=== PATIENT | male | born 1995 | race Caucasian/White ===

== ENCOUNTER 2016-07-23 00:24 | Emergency (ER) | payer BC, OTHER ==
[~2016-07-23] VITALS: Ht 160 cm; Wt 72.7 kg
[~2016-07-23 00:24] MED LIST: PREDNISONE20 MG PO
[2016-07-23 00:37] VITALS: BP 122/70; TEMP 97.3
[2016-07-23] MEDS ORDERED: ILOTYCIN5 MG/GM OU (01:29)
[2016-07-23 02:05] VITALS: PULSE 68
== END 2016-07-23 02:02 | disposition home or self-care (01) ==
LOC: COL.ER 00:24
DX: H10.89 Other conjunctivitis (principal); B99.9 Unspecified infectious disease

== ENCOUNTER 2016-12-27 18:15 | Emergency (ER) | payer BC ==
[~2016-12-27] VITALS: Ht 162.6 cm; Wt 72.7 kg
[~2016-12-27 18:15] MED LIST changes: +ILOTYCIN5 MG/GM OU
[2016-12-27 18:18] VITALS: TEMP 98.6
[2016-12-27 19:19] LABS: CALCIUM 9.5 mg/dL (8.4-10.2); CREATININE, serum 0.79 mg/dL (0.66-1.25); POTASSIUM 3.6 mmol/L (3.4-5.0)
[2016-12-27] MEDS ORDERED: ZOFRAN ODT4 MG PO (19:39)
[2016-12-27 20:16] VITALS: BP 117/66; PULSE 67
== END 2016-12-27 20:16 | disposition home or self-care (01) ==
LOC: COL.ER 18:15
PROVIDERS: Emergency Medicine
DX: R53.81 Other malaise (principal); R11.0 Nausea; R07.89 Other chest pain
CPT/HCPCS: J2405; J7030

== ENCOUNTER 2018-02-04 14:42 | Emergency (ER) | payer BC ==
[~2018-02-04] VITALS: Ht 162.6 cm; Wt 75.0 kg
[~2018-02-04 14:42] MED LIST changes: +ZOFRAN ODT4 MG PO
[2018-02-04 14:44] VITALS: TEMP 98.4
[2018-02-04 15:47] LABS: BASO % 0.4 % (0.0-2.0); EOS # 0.1 (0.0-0.7); EOS % 1.8 % (0-4.0); GRAN # 3.1 (1.4-6.5); GRAN % 60.1 % (42.2-75.2); HEMATOCRIT 45.5 % (42.0-52.0); HEMOGLOBIN 15.6 g/dl (13.5-18.0); LYMPH # 1.5 (1.2-3.4); LYMPH % 28.7 % (20.0-51.0); MEAN CELL VOLUME 89 fl (80.0-100.0); MEAN CORPUSCULAR HEMOGLOBIN 31 pg (27.0-31.0); MEAN CORPUSCULAR HGB CONC 34 g/dl (33.0-37.0); MEAN PLATELET VOLUME 9.7 fl (7.4-10.4); MONO # 0.5 (0.1-0.6); PLATELET COUNT 220 K/mm3 (130-400); REDCELL DISTRIBUTION WIDTH-CV 11.7 % (11.5-14.5)
[2018-02-04 15:56] LABS: ALBUMIN 4.4 gm/dL (3.5-5.0); BILIRUBIN,TOTAL 0.5 mg/dL (0.0-1.0); CALCIUM 9.2 mg/dL (8.4-10.2); CREATININE, serum 0.71 mg/dL (0.66-1.25); POTASSIUM 3.7 mmol/L (3.4-5.0); TOTAL PROTEIN 7.7 gm/dL (6.4-8.2)
[2018-02-04 17:29] VITALS: BP 117/68; PULSE 80
== END 2018-02-04 17:30 | disposition home or self-care (01) ==
LOC: COL.ER 14:42
PROVIDERS: Emergency Medicine
DX: J02.9 Acute pharyngitis, unspecified (principal); R00.2 Palpitations; R06.02 Shortness of breath

== ENCOUNTER 2018-03-16 17:27 | Emergency (ER) | payer BC ==
[~2018-03-16] VITALS: Ht 162.6 cm; Wt 72.7 kg
[2018-03-16 17:32] VITALS: BP 137/76; TEMP 98.3
[2018-03-16 19:10] VITALS: PULSE 58
== END 2018-03-16 19:10 | disposition home or self-care (01) ==
LOC: COL.ER 17:27
DX: R42 Dizziness and giddiness (principal); R51 Headache

== ENCOUNTER 2019-01-29 22:00 | Emergency (ER) | payer SELFPAY ==
[~2019-01-29] VITALS: Ht 162.6 cm; Wt 72.7 kg
[2019-01-29 22:05] VITALS: TEMP 98.5
[2019-01-30 00:02] LABS: BASO % 0.5 % (0.0-2.0); EOS # 0.1 (0.0-0.7); EOS % 2.2 % (0-4.0); GRAN # 3.5 (1.4-6.5); GRAN % 63.9 % (42.2-75.2); HEMOGLOBIN 15.8 g/dl (13.5-18.0); LYMPH # 1.1 (1.2-3.4); LYMPH % 19.5 % (20.0-51.0); MEAN CELL VOLUME 90 fl (80.0-100.0); MEAN CORPUSCULAR HEMOGLOBIN 30 pg (27.0-31.0); MEAN CORPUSCULAR HGB CONC 34 g/dl (33.0-37.0); MEAN PLATELET VOLUME 9.5 fl (7.4-10.4); MONO # 0.8 (0.1-0.6); MONO % 13.7 % (1.7-9.3); PLATELET COUNT 201 K/mm3 (130-400); REDCELL DISTRIBUTION WIDTH-CV 11.8 % (11.5-14.5)
[2019-01-30 00:21] LABS: ALBUMIN 4.6 gm/dL (3.5-5.0); BILIRUBIN,TOTAL 0.5 mg/dL (0.0-1.0); C-REACTIVE PROTEIN 2.1 mg/dL (0.0-0.9); CALCIUM 9.3 mg/dL (8.4-10.2); CREATININE, serum 0.73 (0.66-1.25); TOTAL PROTEIN 7.8 gm/dL (6.4-8.2)
[2019-01-30] MEDS ORDERED: ZOFRAN ODT4 MG PO (01:58)
[2019-01-30 02:13] VITALS: BP 106/74; PULSE 84
== END 2019-01-30 02:06 | disposition home or self-care (01) ==
LOC: COL.ER 22:00
PROVIDERS: Nurse Practitioner
DX: K52.9 Noninfective gastroenteritis and colitis, unspecified (principal); Z88.0 Allergy status to penicillin
CPT/HCPCS: J2405; J2550; J7030